=== PATIENT | male | born 1930 | race Caucasian/White ===

== ENCOUNTER 2019-02-26 08:43 | Day surgery (SDC) | payer MEDICARE, BC ==
[2019-02-25 11:09] LABS: BASOPHILS 0.3 % (0-2); EOSINOPHILS 1.4 % (0-7); HEMATOCRIT 42.2 % (42.0-54.0); HEMOGLOBIN 14.2 g/dL (13.5-17.5); IMMATURE GRANULOCYTES 0.1 % (0-5); LYMPHOCYTES 12.5 % (15-50); MCH 32.3 pg (26.0-34.0); MCHC 33.6 g/dL (31.0-37.0); MCV 95.9 fL (80.0-100.0); MEAN PLATELET VOLUME 9.3 fL (7.4-10.4); MONOCYTES 6.7 % (2-11); PLATELET COUNT 224 10x3/uL (130-400); RDW 13.5 % (11.5-14.5)
[2019-02-25 11:25] LABS: CALC OSMOLALITY 280 mosm/kg (275-300); CALCIUM 9.2 mg/dL (8.5-10.1); CARBON DIOXIDE 29.8 mmol/L (21.0-32.0); CHLORIDE - SERUM 105 mmol/L (98-107); GLUCOSE 108 mg/dL (74-106); POTASSIUM - SERUM 4.7 mmol/L (3.5-5.1); SODIUM 140 mmol/L (136-145); UREA NITROGEN 15 mg/dL (7-18); eGFR NON AFRICAN AMERICAN 75 mL/min (90-120)
[~2019-02-26] VITALS: Ht 167.6 cm; Wt 55.8 kg
[2019-02-26 08:01] VITALS: BP 163/77; Ht 167.6 cm; Wt 55.8 kg
[~2019-02-26 08:43] MED LIST: ALBUTEROL SULF8.5 GM INH; ASPIRIN81 MG PO; PULMICORT0.25 MG/1 INH; VITAMIN D31000 UNIT PO; ZOCOR20 MG PO
[2019-02-26] MEDS ORDERED: FLOMAX0.4 MG PO (11:41)
[2019-02-26] MEDS ORDERED: HYDROCODON-ACE1 EAC7 PO (11:42)
[2019-02-26] MEDS ORDERED: LASIX20 MG PO (11:42)
--- NOTE | 2019-02-26 16:32 | NUR ---
1620 REQUESTED AND SERVED COFFEE.
== END 2019-02-26 18:10 | disposition home or self-care (01) ==
LOC: D.OPS 08:43 → D.PAN 09:45 → D.OPS 09:45 → D.PAN 10:00 → D.OPS 18:10
PROVIDERS: Anesthesiology; ATTEND Surgery
DX: K40.90 Unilateral inguinal hernia, without obstruction or gangrene, not specified as recurrent (principal)